=== PATIENT | female | born 1975 | race African-American/Black ===

== ENCOUNTER 2024-07-20 15:43 | Emergency (ER) | payer BC ==
[~2024-07-20] VITALS: Ht 154.9 cm; Wt 75.7 kg
[2024-07-20] MEDS ORDERED: KETOROLAC TROMETHAMINE 15 MG/ML VIAL ONE (16:37)
[2024-07-20] MEDS ORDERED: diphenhydrAMINE HCL 50 MG/ML VIAL ONE (16:37)
[2024-07-20] MEDS ORDERED: ONDANSETRON HCL/PF 4 MG/2 ML VIAL ONE (16:37)
[2024-07-20] MEDS ORDERED: METOCLOPRAMIDE HCL 10 MG/2 ML VIAL ONE (16:37)
[2024-07-20 16:52] LABS: BASOPHILS % (AUTO) 0.3 % (0.0-2.0); HEMATOCRIT 45 % (33-45); HEMOGLOBIN 15.1 g/dL (11.5-14.8); LYMPHOCYTES # (AUTO) 1.4 K/uL (0.8-4.8); MEAN CORPUSCULAR HEMOGLOBIN 30 PG (26.0-33.0); MEAN CORPUSCULAR HGB CONC 34 g/dl (31.0-36.0); MEAN CORPUSCULAR VOLUME 89 fL (82-100); MONOCYTES # (AUTO) 0.4 K/uL (0.1-1.30); MONOCYTES % (AUTO) 11.5 % (2.0-12.0); NEUTROPHILS # (AUTO) 1.3 K/uL (1.8-8.9); NEUTROPHILS % (AUTO) 41.2 % (43.0-81.0); PLATELET COUNT (AUTO) 201 K/uL (150-450); RED BLOOD CELL COUNT(AUTO) 5.01 MIL/uL (4.0-5.2); RED CELL DISTRIBUTION WIDTH 13.9 % (11.5-15.0); WHITE BLOOD COUNT (AUTO) 3.1 K/uL (4.3-11.0)
[2024-07-20] MEDS: METOCLOPRAMIDE HCL 10 MG/2 ML VIAL IV ONE (16:52)
[2024-07-20] MEDS: diphenhydrAMINE HCL 50 MG/ML VIAL IV ONE (16:52)
[2024-07-20] MEDS: ONDANSETRON HCL/PF 4 MG/2 ML VIAL IVP ONE (16:53)
[2024-07-20] MEDS: KETOROLAC TROMETHAMINE 15 MG/ML VIAL IV ONE (16:53)
[2024-07-20] MEDS: IV NS 0.9% 500 ML BAG IV ONE (16:53)
[2024-07-20 16:59] LABS: CALCIUM, SERUM 9.4 mg/dL (8.5-10.1); CREATININE 0.7 mg/dL (0.6-1.3); POTASSIUM 3.2 mmol/L (3.5-5.1)
[2024-07-20 17:03] LABS: PREGNANCY TEST URINE QUAL NEGATIVE (NEGATIVE)
[2024-07-20] MEDS ORDERED: SCOP1PAT11 TD (17:41)
[2024-07-20] MEDS ORDERED: MECL-159 PO (17:41)
[2024-07-20] MEDS ORDERED: ONDA4TAB5 PO (17:41)
[2024-07-20] MEDS ORDERED: IBUP-1953 PO (17:41)
[2024-07-20] MEDS ORDERED: POTASSIUM CHLORIDE 20 MEQ TAB.PRT.SR PO ONE (17:45)
[2024-07-20] MEDS: POTASSIUM CHLORIDE 20 MEQ TAB.PRT.SR PO ONE (18:03)
[2024-07-20 18:07] VITALS: BP 130/87; TEMP 98.5; O2SAT 100
== END 2024-07-20 18:08 | disposition home or self-care (01) ==
LOC: ER 15:53
DX: R42 Dizziness and giddiness (principal); R51.9 Headache, unspecified; R11.0 Nausea
CPT/HCPCS: 99284; 96374; 96375; 93005; 85025; 80048; 84703; 36415; J1885; J1200; J2765; J2405; J7040